=== PATIENT | male | born 1955 | race Caucasian/White ===

== ENCOUNTER 2018-12-14 09:42 | Day surgery (SDC) | payer MEDICAID ==
[~2018-12-14] VITALS: Ht 165.1 cm; Wt 55.0 kg
[2018-12-14 10:21] LABS: HEMATOCRIT 36.3 % (42.0-54.0); HEMOGLOBIN 11.4 g/dL (13.5-17.5); MCHC 31.4 g/dL (31.0-37.0); MCV 85.8 fL (80.0-100.0); MEAN PLATELET VOLUME 9.1 fL (7.4-10.4); RBC 4.23 10x6/uL (4.20-6.10); RDW 18.8 % (11.5-14.5); WBC 7.5 10x3/uL (4.8-10.8)
[2018-12-14 10:27] LABS: ANION GAP 15.8 mmol/L (8-16); CALCIUM 9.1 mg/dL (8.5-10.1); CARBON DIOXIDE 24.7 mmol/L (21.0-32.0); CREATININE - SERUM 1.2 mg/dL (0.6-1.3); POTASSIUM - SERUM 4.5 mmol/L (3.5-5.1)
[2018-12-14] MEDS ORDERED: ALBUTEROL SULF8.5 GM INH (10:57)
[2018-12-14] MEDS ORDERED: SPIRIVA18 MCG INH (10:58)
[2018-12-14 10:59] VITALS: BP 124/70; Ht 165.1 cm; Wt 55.0 kg
--- NOTE | 2018-12-14 12:50 | NUR ---
1240 DISCHARGE INSTRUCTIONS GIVEN AND PT VOICES UNDERSTANDING. IV DC'D. CATHETER TIP INTACT. NO BLEEDING AT SITE. BANDAID APPLIED.
--- NOTE | 2018-12-16 09:54 | OP ---
PATIENT NAME: SEAN ALICEA MEDICAL RECORD: [id number] :59 LOCATION:D.OPS ADMISSION DATE: SURGEON: MARIE CHAVEZ DO DATE OF OPERATION: 12/14/2018 PROCEDURE: Colonoscopy with polypectomy. INDICATIONS FOR PROCEDURE: Screening for colorectal cancer. SCOPE: Olympus video pediatric colonoscope. MEDICATIONS: Propofol 380 mg IV per anesthesia. WITHDRAWAL TIME: 17 minutes. ESTIMATED BLOOD LOSS: Minimal. COMPLICATIONS: None. FINDINGS: Informed consent was given. The patient was made comfortable with the above medication. After reaching an adequate level of sedation by slow IV push, the patient was placed on his left side. A digital rectal examination was performed and it was normal. The endoscope was then advanced under direct visualization through the rectum to the cecum, confirmed by the presence of the appendiceal orifice and ileocecal valve. The endoscope was slowly withdrawn and mucosa was carefully examined. There was 1 polyp visualized on today's exam. It was a benign appearing sessile polyp, which measured approximately 4 mm in diameter. It was located in the sigmoid colon. It was removed using hot forceps in 1 piece and completely retrieved. There were no diverticula seen on today's examination. Retroflexion was performed in the rectum with visualization of a normal rectal wall. The endoscope was withdrawn from the patient. The patient tolerated the procedure well and there were no complications. IMPRESSION: 1. A single benign-appearing sessile polyp located in the sigmoid colon. It was removed using hot forceps. 2. Otherwise, normal colonoscopy. PLAN AND RECOMMENDATIONS: 1. Discharge home when recovery parameters are met. 2. Follow up biopsy specimen results. 3. Continue current diet. 4. Continue current medications. 5. Recall colonoscopy in 5 years for surveillance based on personal history of polyps. TRANSINT:[id number] Voice Confirmation ID: [id number] DOCUMENT ID: [id number] OPERATIVE REPORT [id number] SEAN ALICEA MARIE CHAVEZ DO at 0954 CC: [id number] DICTATION DATE: 12/14/18 1154 SUPPORT SERVICES REP: 12/14/18 1229 [facility] 12/14/18 [place] [address]
== END 2018-12-14 12:55 | disposition home or self-care (01) ==
LOC: D.OPS 09:42
PROVIDERS: Anesthesiology; ATTEND Internal Medicine Gastroenterology
DX: K63.5 Polyp of colon (principal); Z12.11 Encounter for screening for malignant neoplasm of colon